=== PATIENT | female | born 1955 | race Caucasian/White ===

== ENCOUNTER 2018-02-28 07:21 | Emergency (ER) | payer BC, OTHER ==
[~2018-02-28] VITALS: Ht 160 cm; Wt 62.0 kg
[~2018-02-28 07:21] MED LIST: GLUC500C3 PO; ZITH250T PO
[2018-02-28 07:28] VITALS: BP 122/81; PULSE 91; RESP 16; TEMP 98.8; O2SAT 99
[2018-02-28] MEDS ORDERED: SODIUM CHLOR 0.9% 1000 ML INJ 1,000 ML IV SCH (08:09)
[2018-02-28] MEDS ORDERED: ONDANSETRON ODT 4 MG TAB PO ONE (08:15)
[2018-02-28] MEDS ORDERED: SODIUM CHLORIDE 0.9% FLUSH 10 ML FLUSH IV FLUSH PRN (08:15)
[2018-02-28 08:30] LABS: AUTOMATED NEUTROPHIL # 4.4 TH/MM3 (1.8-7.7); BASOPHIL # 0.1 TH/MM3 (0-0.2); BASOPHIL % 1.3 % (0.0-2.0); EOSINOPHIL # 0.1 TH/MM3 (0-0.4); EOSINOPHIL % 1.3 % (0.0-4.0); HEMATOCRIT 42.9 % (35.0-46.0); HEMOGLOBIN 14.6 GM/DL (11.6-15.3); MEAN CELL VOLUME 90.8 FL (80.0-100.0); MEAN CORPUSCULAR HEMOGLOBIN 30.9 PG (27.0-34.0); MEAN PLATELET VOLUME 8.5 FL (7.0-11.0); MONO % 4.2 % (0.0-8.0); MONOCYTE # 0.3 TH/MM3 (0-0.9); NEUT % 64.2 % (16.0-70.0); PLATELET COUNT 185 TH/MM3 (150-450); RED BLOOD COUNT 4.73 MIL/MM3 (4.00-5.30); RED CELL DISTRIBUTION WIDTH 13.9 % (11.6-17.2); WHITE BLOOD COUNT 6.9 TH/MM3 (4.0-11.0)
[2018-02-28 08:47] LABS: ALT (GPT) 17 U/L (10-53); AST (GOT) 15 U/L (15-37); BICARBONATE 28.5 MEQ/L (21.0-32.0); BLOOD UREA NITROGEN 16 MG/DL (7-18); CALCIUM 8.9 MG/DL (8.5-10.1); CHLORIDE 104 MEQ/L (98-107); CREATININE 0.93 MG/DL (0.50-1.00); GLOMERULAR FILTRATION RATE 61 ML/MIN (>89); GLUCOSE,RANDOM 88 MG/DL (74-106); SODIUM (NA) 138 MEQ/L (136-145)
[2018-02-28 08:50] LABS: ALKALINE PHOSPHATASE 101 U/L (45-117); TOTAL BILIRUBIN ADULT 0.7 MG/DL (0.2-1.0); TOTAL PROTEIN 7.2 GM/DL (6.4-8.2)
--- NOTE | 2018-02-28 09:25 | PD ---
HPI Chief Complaint: GI Complaint Time Seen by Provider: 07:59 Travel History International Travel<30 days: No Contact w/Intl Traveler<30days: No Traveled to known affect area: No History of Present Illness HPI Patient presents to the emergency department complaining of nausea vomiting, constipation, nonbloody diarrhea intermittently for the last month. States that she was diagnosed with irritable bowel syndrome approximately 20 years ago. Whenever she takes a hot shower it alleviates the symptoms somewhat. She saw on the and he did an EKG which was normal according to the patient , and scheduled her for HIDA scan on the and a GI doctor appointment on the . States that she has been taking p.o. Phenergan but still vomiting and switched to Phenergan suppositories yesterday. She denies chest pain, fever , chills, weight loss. But she does report sweating with the vomiting and shortness of breath with vomiting and abdominal pain from the dry heaving, but normally she does not have abdominal pain with the symptoms. PFSH Past Medical History Arthritis: Yes Asthma: Yes Autoimmune Disease: No Blood Disorders: No Bipolar Disorder: Yes Anxiety: No Depression: No Heart Rhythm Problems: No Cancer: No Cardiovascular Problems: No High Cholesterol: No Chemotherapy: No Chest Pain: No Congestive Heart Failure: No COPD: Yes Diabetes: No Diminished Hearing: No Endocrine: No GERD: Yes Glaucoma: No Genitourinary: No Hepatitis: Yes ( A CHILD) Hiatal Hernia: No Hypertension: No Immune Disorder: No Kidney Stones: No Musculoskeletal: No Neurologic: No Psychiatric: No Reproductive: No Respiratory: No Immunizations Current: No Myocardial Infarction: No Radiation Therapy: No Renal Failure: No Seizures: No Sickle Cell Disease: No Sleep Apnea: No Thyroid Disease: No Ulcer: No ?: Not Menopausal: Yes Past Surgical History AICD: No Cholecystectomy: Yes Gynecologic Surgery: Yes Pacemaker: No Other Surgery: Yes (SURG FOR INFECTED CAT BITES X 2.) Social History Alcohol Use: No Tobacco Use: Yes (half a pack a day) Substance Use: No (HX OF MARIJUANA.) Allergies-Medications (Allergen,Severity, Reaction): Coded Allergies: No Known Allergies (Verified Allergy, Unknown, 02/28/18) Reported Meds & Prescriptions Reported Meds & Active Scripts Active Bentyl (Dicyclomine HCl) 10 Mg Cap 20 Mg PO QID 5 Days Review of Systems Except as stated in HPI: all other systems reviewed are Neg Physical Exam Narrative GENERAL: No acute distress. SKIN: Focused skin assessment warm/dry. HEAD: Atraumatic. Normocephalic. EYES: Pupils equal and round. No scleral icterus. No injection or drainage. ENT: No nasal bleeding or discharge. Mucous membranes pink and moist. NECK: Trachea midline. No JVD. CARDIOVASCULAR: Regular rate and rhythm. No murmur appreciated. RESPIRATORY: No accessory muscle use. Clear to auscultation. Breath sounds equal bilaterally. GASTROINTESTINAL: Abdomen soft, non-tender, nondistended. Hepatic and splenic margins not palpable. MUSCULOSKELETAL: No obvious deformities. No clubbing. No cyanosis. No edema. NEUROLOGICAL: Awake and alert. No obvious cranial nerve deficits. Motor grossly within normal limits. Normal speech. PSYCHIATRIC: Appropriate mood and affect; insight and judgment normal. Data Data Last Documented VS Vital Signs Date Time Temp Pulse Resp B/P (MAP) Pulse Ox O2 Delivery O2 Flow Rate FiO2 02/28/18 07:28 98.8 91 16 122/81 (95) 99 Orders Orders Complete Blood Count With Diff (02/28/18 08:09) Comprehensive Metabolic Panel (02/28/18 08:09) Lipase (02/28/18 08:09) Lactic Acid (02/28/18 08:09) Ct Abd/Pel W Iv Contrast(Rout) (02/28/18 08:09) Iv Access Insert/Monitor (02/28/18 08:09) Ecg Monitoring (02/28/18 08:09) Oximetry (02/28/18 08:09) Sodium Chlor 0.9% 1000 Ml Inj (Ns 1000 M (02/28/18 08:09) Sodium Chloride 0.9% Flush (Ns Flush) (02/28/18 08:15) Ondansetron Odt (Zofran Odt) (02/28/18 08:15) Iohexol 350 Inj (Omnipaque 350 Inj) (02/28/18 09:36) Labs Laboratory Tests Test 02/28/18 08:19 White Blood Count 6.9 TH/MM3 Red Blood Count 4.73 MIL/MM3 Hemoglobin 14.6 GM/DL Hematocrit 42.9 % Mean Corpuscular Volume 90.8 FL Mean Corpuscular Hemoglobin 30.9 PG Mean Corpuscular Hemoglobin Concent 34.0 % Red Cell Distribution Width 13.9 % Platelet Count 185 TH/MM3 Mean Platelet Volume 8.5 FL Neutrophils (%) (Auto) 64.2 % Lymphocytes (%) (Auto) 29.0 % Monocytes (%) (Auto) 4.2 % Eosinophils (%) (Auto) 1.3 % Basophils (%) (Auto) 1.3 % Neutrophils # (Auto) 4.4 TH/MM3 Lymphocytes # (Auto) 2.0 TH/MM3 Monocytes # (Auto) 0.3 TH/MM3 Eosinophils # (Auto) 0.1 TH/MM3 Basophils # (Auto) 0.1 TH/MM3 CBC Comment DIFF FINAL Differential Comment Blood Urea Nitrogen 16 MG/DL Creatinine 0.93 MG/DL Random Glucose 88 MG/DL Total Protein 7.2 GM/DL Albumin 4.0 GM/DL Calcium Level 8.9 MG/DL Alkaline Phosphatase 101 U/L Aspartate Amino Transf (AST/SGOT) 15 U/L Alanine Aminotransferase (ALT/SGPT) 17 U/L Total Bilirubin 0.7 MG/DL Sodium Level 138 MEQ/L Potassium Level 4.7 MEQ/L Chloride Level 104 MEQ/L Carbon Dioxide Level 28.5 MEQ/L Anion Gap 6 MEQ/L Estimat Glomerular Filtration Rate 61 ML/MIN Lactic Acid Level 0.6 mmol/L Lipase 202 U/L [facility] Medical Decision Making Medical Screen Exam Complete: Yes Emergency Medical Condition: Yes Interpretation(s) Last Impressions Abdomen/Pelvis CT 02/28/18 0809 Signed Impressions: Service Date/Time: Wednesday, February 28, 2018 09:28 - CONCLUSION: 1. Atherosclerosis. 2. Diverticulosis. 3. Left renal cyst. 4. Left ovarian cyst. 5. Right adrenal nodule. Farooq Joseph MD Labs: Within normal limits Differential Diagnosis Colitis, irritable bowel syndrome, gastroenteritis, Narrative Course Patient presents to the emergency department complaining of intermittent 1 month history of nausea vomiting, constipation, and diarrhea. Will check CBC, chemistry, lactate, CT abdomen and pelvis with IV contrast. Patient given Zofran ODT and a liter of normal saline. Physician Communication Physician Communication [id number]: Spoke to patient's primary care physician, Dr. Carballo, who advised the patient has follow-up appointments with GI as scheduled as well as some imaging. Okay with discharging the patient with a trial of Bentyl and patient is to call his office today for a follow-up appointment this week. Diagnosis Primary Impression: Abdominal pain Qualified Codes: R10.9 - Unspecified abdominal pain Patient Instructions: Abdominal Pain (ED), General Instructions Med/Other Pt SpecificInfo: Prescription(s) given Scripts Dicyclomine (Bentyl) 10 Mg Cap 20 MG PO QID for Bowel Management for 5 Days, #40 CAP 0 Refills Prov: Denice Hickey MD 02/28/18 Disposition: 01 DISCHARGE HOME Condition: Stable Denice Hickey MD February 28, 2018 09:25
[2018-02-28] MEDS ORDERED: IOHEXOL 350 MG/ML 10 ML VIAL (for RAD DIAG) IVCONTRAST ONE (09:36)
--- NOTE | 2018-02-28 09:44 | RADRPT ---
EXAM DATE/TIME: 02/28/2018 09:28 [place] COMPARISON: No previous studies available for comparison. INDICATIONS : Intermittent nausea and vomiting for 1 month IV CONTRAST: 95 cc Omnipaque 350 (iohexol) IV ORAL CONTRAST: No oral contrast ingested. RADIATION DOSE: 5.27 CTDIvol (mGy) MEDICAL HISTORY : Gastroesophageal reflux disease. Cirrhosis. SURGICAL HISTORY : Cholecystectomy. ENCOUNTER: Initial ACUITY: 1 month PAIN SCALE: 0/10 LOCATION: abdomen TECHNIQUE: Volumetric scanning of the abdomen and pelvis was performed. Using automated exposure control and ad justment of the mA and/or kV according to patient size, radiation dose was kept as low as reasonably achievable to obtain optimal diagnostic quality images. DICOM format image data is available electro nically for review and comparison. FINDINGS: Lung bases are clear. Degenerative changes of the spine are noted. The patient is status post cholecy stectomy. No pleural or pericardial effusions are seen. There is a 1.3 cm right adrenal nodule which is incompletely characterized on this study. Right kidney unremarkable. Left renal cyst is present at the midpole measuring 3.2 cm. Urinary bladder is unremarkable. The uterus and right ovary are unrema rkable. There is a circumscribed simple cyst of the left ovary identified measuring 4.5 cm. There is diverticulosis of the sigmoid and descending colon without evidence for diverticulitis. Appendix is n ormal. There is no adenopathy or aneurysm. Atherosclerotic calcifications are present. CONCLUSION: 1. Atherosclerosis. 2. Diverticulosis. 3. Left renal cyst. 4. Left ovarian cyst. 5. Right adrenal nodule. Farooq Joseph MD on February 28, 2018 at 9:39 Board Certified Radiologist. This report was verified electronically.
[2018-02-28] MEDS ORDERED: DICY10 PO ×2 (11:33→11:38)
[2018-03-04] MEDS ORDERED: CLAR10TA7 PO (10:27)
[2018-03-04] MEDS ORDERED: OMEP20TA93 PO (10:27)
[2018-03-04] MEDS ORDERED: ALPR.5 PO (11:24)
[2018-03-04] MEDS ORDERED: LISI10TA3 PO (11:38)
== END 2018-02-28 11:44 | disposition home or self-care (01) ==
LOC: NEPE 07:21
DX: R10.9 Unspecified abdominal pain (principal); R11.2 Nausea with vomiting, unspecified; F17.200 Nicotine dependence, unspecified, uncomplicated
CPT/HCPCS: 74177; 80053; 83605; 83690; 85025; 99284; J7030; Q9967

== ENCOUNTER 2018-03-03 09:27 | Observation (INO) | END 2018-03-04 14:44 | disposition home or self-care (01) | DX: K58.2 Mixed irritable bowel syndrome (principal); R11.2 Nausea with vomiting, unspecified; F41.9 Anxiety disorder, unspecified; R03.0 Elevated blood-pressure reading, without diagnosis of hypertension; J44.9 Chronic obstructive pulmonary disease, unspecified; K21.9 Gastro-esophageal reflux disease without esophagitis; F31.9 Bipolar disorder, unspecified; M19.90 Unspecified osteoarthritis, unspecified site; F17.200 Nicotine dependence, unspecified, uncomplicated; Z79.899 Other long term (current) drug therapy; Z85.841 Personal history of malignant neoplasm of brain | CPT/HCPCS: 74019; 76700; 80048; 80053; 80307; 82550; 83605; 83735; 85025; 85610; 85730; 86850; 86900; 86901; 96361; 96374; 96375; 96376; 99285; C9113; G0378; J2060; J7030 ==